=== PATIENT | male | born 1995 | race Caucasian/White ===

== ENCOUNTER 2016-09-01 20:13 | Emergency (ER) | payer BC ==
[~2016-09-01] VITALS: Ht 193 cm; Wt 95.5 kg
[2016-09-01 20:21] VITALS: TEMP 36.8; Ht 193 cm; Wt 95.5 kg
--- NOTE | 2016-09-01 20:54 | EMERGENCY ROOM VISIT NOTE ---
ED Visit Note First contact with patient: 20:35 Chief Complaint: Broken Nose History of Present Illness: Patient is a 20-year-old male who presents to the emergency department today after sustaining a facial injury. He reports that while playing ultimate Frisbee, he turned abruptly and collided heads with another opponent. He was knocked to the ground. He did not lose consciousness. He reports bleeding from the bilateral nares. The bleeding has since stopped. He reported a mild headache initially which as since resolved. He reports pain to the bridge of the nose as well as some swelling and mild deformity. He does report a previous history of nasal fracture in the past. There was no surgical intervention at that point. The patient has tried nothing for his pain. He rates his current discomfort as an 8/10. He denies any headaches, dizziness, lightheadedness, nausea, vomiting, neck pain, or numbness/weakness to the extremities. The patient does not utilize blood thinners. Medications: No current medications. Allergies: No known allergies. PMH: No pertinent past medical history. 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 ROS: All pertinent positive and negative review of systems are appropriately documented in the History of Present Illness. Physical Exam: VITAL SIGNS - Vital signs and nursing notes were reviewed. GENERAL - 20-year-old male appearing his stated age. Communicates well with provider and answers questions appropriately. HEAD - Normocephalic. No Schumacher's Sign or Raccoon's Eyes. No depressed skull fractures palpable. EYES - PERRL with EOMI bilaterally. Without subconjunctival hemorrhage. Palpebral conjunctiva pink and moist with no injection. EARS - No deformities of external structures noted on gross examination bilaterally. No hemotympanum present. No tympanic perforation noted. Handle of malleus, umbo, cone of light, pars tensa/flaccid all easily visualized. NOSE - mild edema with LEFT-sided deviation noted. Developing ecchymosis. Dried blood noted in the bilateral nares. No clear watery discharge noted. Septum midline without deviation. No septal hematoma noted. No overlying ecchymosis noted. MOUTH/OROPHARYNX - Without perioral cyanosis. Tongue midline with equal elevation of palate bilaterally. No blood noted in the oropharynx. No tonsillar hypertrophy, erythema, or exudates noted. No dental fractures noted. NECK - FROM assessed. No nuchal rigidity. No tenderness to palpation over the cervical spinous processes. No cervical paraspinal muscle tenderness noted. NEUROLOGIC - Cranial nerves II through XII grossly intact. Sensory intact to light touch throughout. PSYCH - A&Ox3 and cooperates fully with examiner. Pt is very pleasant and interacts well with examiner. IMAGING: NASAL BONES MIN 3 VIEWS CLINICAL HISTORY: Nasal injury. COMPARISON STUDY: None. FINDINGS: Nondisplaced fracture at the tip of the nasal bones. The nasal septum is essentially midline. The orbital floors are intact. IMPRESSION: Nasal bone fractures which are essentially nondisplaced. ED Course: Patient was seen and evaluated by myself. X-ray of the nasal bones were obtained. Imaging results as above. Imaging results were reviewed with the patient who acknowledges understanding. Patient was encouraged to follow up with ENT in 72 hours for further evaluation and management. He was educated on worrisome symptoms for return visit to the emergency department. Patient discharged home in good condition. In the evaluation and treatment of this patient, the following differential diagnoses were considered: Concussion, Contrecoup Injury, Brain Tumor, Depression, Encephalitis, Hypothyroidism, Meningitis, CVA, TIA, Migraine, Cluster Headache, Intracranial Abnormality, Intracranial Hemorrhage, Subdural Hematoma, Subarachnoid Hemorrhage, Hydrocephalus. Impression: Nasal Bone Fracture Discharge Instructions: You have been seen in the emergency department today for your nasal bone fractures. For pain control, you can use the following [id number]-wqpsrig medicines (if >12 yo): - Regular strength (325mg/tab) Tylenol (acetaminophen) 2 tabs every 4-6 hours as needed. Do not exceed 12 tablets in a 24 hour period. Avoid taking more than 4 grams (4000 mg) of Tylenol per day. This includes any other sources of acetaminophen you may take on a regular basis. - Regular strength (200 mg/tab) Advil (ibuprofen) 1-2 tabs every 4-6 hours as needed. Do not exceed a dose of 3200 mg per day. Please sleep with head of the bed elevated. Do not blow your nose for the next several days. Follow-up with ENT within the next 72 hours. You have been provided the contact information. Return for any changing or worsening symptoms. Current/Historical Medications No Active Prescriptions or Reported Meds Allergies Coded Allergies: No Known Allergies (Unverified , 09/01/16) Vital Signs Date Time Temp Pulse Resp B/P Pulse Ox O2 Delivery O2 Flow Rate FiO2 09/01/16 22:27 76 16 134/79 99 09/01/16 20:21 36.8 81 18 150/83 100 Room Air Departure Information Impression Primary Impression: Nasal bone fractures Dispostion Home / Self-Care Condition GOOD Prescriptions No Active Prescriptions or Reported Meds Referrals No Doctor, Assigned (PCP) Gerri Powell M.D. Patient Instructions Broken Nose - [facility], [facility] Additional Instructions You have been seen in the emergency department today for your nasal bone fractures. For pain control, you can use the following vwnc-yjf-dtyobhc medicines (if >12 yo): - Regular strength (325mg/tab) Tylenol (acetaminophen) 2 tabs every 4-6 hours as needed. Do not exceed 12 tablets in a 24 hour period. Avoid taking more than 4 grams (4000 mg) of Tylenol per day. This includes any other sources of acetaminophen you may take on a regular basis. - Regular strength (200 mg/tab) Advil (ibuprofen) 1-2 tabs every 4-6 hours as needed. Do not exceed a dose of 3200 mg per day. Please sleep with head of the bed elevated. Do not blow your nose for the next several days. Follow-up with ENT within the next 72 hours. You have been provided the contact information. Return for any changing or worsening symptoms. Problem Qualifiers Primary Impression: Nasal bone fractures Encounter type: initial encounter Fracture type: closed Qualified Codes: S02.2XXA - Fracture of nasal bones, initial encounter for closed fracture
--- NOTE | 2016-09-01 21:32 | DIAGNOSTIC IMAGING REPORT ---
NASAL BONES MIN 3 VIEWS CLINICAL HISTORY: Nasal injury. COMPARISON STUDY: None. FINDINGS: Nondisplaced fracture at the tip of the nasal bones. The nasal septum is essentially midline. The orbital floors are intact. IMPRESSION: Nasal bone fractures which are essentially nondisplaced. Electronically signed by: Tono Wolfe M.D. 09/01/2016 9:30 PM Dictated Date/Time: 09/01/2016 9:29 PM
[2016-09-01 22:27] VITALS: BP 134/79; PULSE 76; O2SAT 99
== END 2016-09-01 22:27 | disposition home or self-care (01) ==
LOC: C.EDB 20:16 → C.EDD 22:27
DX: S02.2XXA Fracture of nasal bones, initial encounter for closed fracture (principal); W50.0XXA Accidental hit or strike by another person, initial encounter; Y93.74 Activity, frisbee